=== PATIENT | male | born 1955 | race Caucasian/White ===

== ENCOUNTER 2023-10-05 14:19 | Emergency (ER) | payer OTHER, MEDICARE, SELFPAY ==
[2023-10-05 14:21] VITALS: BP 139/80; BMI 30.5
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
[2023-10-05] MEDS: TYLENOL 1000 MG PO (14:48)
== END 2023-10-05 16:21 | disposition home or self-care (01) ==
LOC: EMR 14:19
PROVIDERS: EMERGENCY PHYSICIAN Emergency Medicine; FAMILY PHYSICIAN Student in an Organized Health Care Education/Training Program
DX: S16.1XXA Strain of muscle, fascia and tendon at neck level, initial encounter (principal); V43.52XA Car driver injured in collision with other type car in traffic accident, initial encounter; I10 Essential (primary) hypertension
CPT/HCPCS: 99284; 70450; 72125

== ENCOUNTER 2023-11-09 19:15 | Emergency (ER) | payer MEDICARE, BC, SELFPAY ==
[2023-11-09 19:20] VITALS: BP 166/89
[2023-11-09 19:23] VITALS: BP 168/86
[2023-11-09 19:43] LABS: % Basophils 0.4 % (0-2); % Eosinophils 1.9 % (0-6); % Immature Granulocytes 0.1 % (0-0.5); % Lymphocytes 38.9 % (20.5-51.1); % Monocytes 11.3 % (1.7-9.3); % Neutrophils 47.4 % (42.2-75.2); Absolute Eosinophils 0.1 10^3/uL (0-0.7); Absolute Lymphocytes 2.7 10^3/uL (1.2-3.4); Absolute Monocytes 0.8 10^3/uL (0.1-0.6); Absolute Neutrophils 3.2 10^3/uL (1.4-6.5); Hematocrit 40.8 % (39.0-52.0); Hemoglobin 14.2 g/dL (13.0-18.0); Mean Corp Hgb Conc. 34.8 g/dL (33.0-37.0); Mean Corpuscular Hgb 31.3 pg (27.0-31.0); Mean Corpuscular Volume 89.9 fL (80.0-94.0); Mean Platelet Volume 10.8 fL (7.4-10.4); Nucleated Red Blood Cells % 0 % (-); Platelet Count 227 10^3/uL (130-400); Red Blood Cell Count 4.54 10^6/uL (4.70-6.10); Red Cell Dist. Width 12.9 % (11.5-14.5); White Blood Cell Count 6.8 10^3/uL (4.8-10.8)
[2023-11-09 20:03] VITALS: BP 158/79
[2023-11-09 20:05] LABS: ALT (SGPT) 23 U/L (0-50); AST (SGOT) 28 U/L (17-59); Albumin 4.7 g/dl (3.5-5.0); Alkaline Phosphatase 41 U/L (38-126); Blood Urea Nitrogen 14 mg/dl (9-20); Calcium 9.8 mg/dl (8.4-10.2); Carbon Dioxide 31 mmol/L (22-30); Chloride 100 mmol/L (98-107); Estimated Creatinine Clearance 122 ml/min; Glucose 98 mg/dl (70-99); Potassium 4.8 mmol/L (3.5-5.1); Sodium 137 mmol/L (135-145); Total Bilirubin 0.7 mg/dl (0.2-1.3); Total Protein 6.9 g/dl (6.3-8.2); eGFR > 60.00
[2023-11-09 20:11] LABS: Troponin I < 0.012 ng/ml
[2023-11-09 21:00] VITALS: BP 142/84
--- NOTE | 2023-11-09 21:36 | ED.GENMED ---
History of Present Illness
General
Chief Complaint: Chest Pain
Source: patient and spouse
Exam Limitations: none
Time Seen by Provider: 11/09/23 19:56
Nursing documentation reviewed up to this point in time: agreed with
Travel History
Have you had any contact with someone who has COVID-19?: No
Do you have any symptoms of coronavirus? Fever > 100 degrees, chills, cough, shortness of breath, sore throat, loss of taste or smell, muscle aches, or headache?: No
History of Present Illness
History of Present Illness:
Patient with history of hypertension on valsartan and carvedilol, presents ED secondary to 3-day history of persistent chest pain, headache, and bilateral arm tingling sensation. When he checked his blood pressure at home on multiple occasions, it
was high as systolic pressure greater than 200. Patient called his wedger and gluer today for an appointment, but appointment was given for next week. Patient did not think he could wait until then. Denies shortness of breath. Denies fever or
chills. Denies trauma. Denies coughing. Denies nausea, vomiting, or diarrhea. Chest pain described as achy sensation, nonradiating, without any alleviating or exacerbating factors. Denies previous history of chest pain. Patient had seen
cardiology in the past, secondary to hypertension along with family history of heart disease. However, for the past 3 years, his wedger and gluer has not recommended that he need to be seen. Denies recent travel or surgery.
Past History
Past History
ED Past Medical History: HTN, Hypercholesterolemia, NIDDM and Other (peripheral neuropathy)
Social History
Tobacco: Non-smoker
Alcohol: None
Drug: None
Personal:
Living: with family
Employment: Retired
Review of Systems
Review of Systems
Allergies reviewed?: Yes
All Other Systems: ROS reviewed and negative except as documented in HPI and ROS
Constitutional: Reports no symptoms
EENT: Reports no symptoms
Respiratory: Reports no symptoms; Denies trouble breathing
Cardiac: Reports chest pain
ABD/GI: Reports no symptoms
Musculoskeletal: Reports no symptoms
Skin: Reports no symptoms
Neurological: Reports headache; Denies dizzy or weakness
Phy Exam
Physical Exam
Physical Exam:
Physical Exam
General: no apparent distress, not acutely ill. afebrile.
Head: nc/at. eomi
Neck: supple. no meningeal signs.
Heart: s1/s2 regular rate and rhythm, no murmur. equal radial pulses.
Lungs: no acute respiratory distress. clear bilaterally. chest wall nontender to palpation.
Abdomen: normal bowel sounds. not tender.
Neuro: alert and oriented. no focal neurological deficits
Skin: no rash
Psychiatric: well kept. interactive and cooperative
Extremities: no edema. no calf tenderness.
Scores
Heart Score for Chest Pain Patients
STEMI patient?: No
History: Slightly or Non-Suspicious
ECG: Normal
Age: >45 - <65 years
Risk Factors: 1 or 2 Risk Factors
Troponin: </= Normal Limit
Heart Score for Chest Pain Patients: 2
Heart Score Risk: 2.5% MACE over next 6 weeks
Course
Orders/Labs/Results
Orders:
Orders
11/09/23 19:17
EKG [Electrocardiogram (*1)] Urgent
Reason for Study: Chest Pain
EKG- Treatment ONCE
11/09/23 19:33
Complete Blood Count/With Diff Urgent
Comprehensive Metabolic Panel Urgent
Troponin I Urgent
Abnormal Lab Results
11/09/23
19:33
RBC 4.54 L 10^6/uL
(4.70-6.10)
MCH 31.3 H pg
(27.0-31.0)
MPV 10.8 H fL
(7.4-10.4)
Absolute Monos (auto) 0.8 H 10^3/uL
(0.1-0.6)
Monocytes % 11.3 H %
(1.7-9.3)
Carbon Dioxide 31 H mmol/L
(22-30)
Creatinine 0.6 L mg/dL
(0.7-1.3)
11/09/23 19:33
11/09/23 19:33
Vital Signs
Initial and Last Documented VS:
Initial Vital Signs
Temp Pulse Resp BP Pulse Ox
98.4 F 46 20 166/89 99
11/09/23 19:20 11/09/23 19:20 11/09/23 19:20 11/09/23 19:20 11/09/23 19:20
Last Documented Vital Signs
Temp Pulse Resp BP Pulse Ox
98.4 F 46 13 142/84 96
11/09/23 19:20 11/09/23 21:15 11/09/23 21:15 11/09/23 21:00 11/09/23 21:15
MDM/Problems Addressed
MDM/Problems Addressed:
History and exam inconsistent with acute coronary syndrome, along with unremarkable workup. Symptoms may just as well be likely secondary to labile blood pressure. However, given patient's underlying hypertension, obesity along with family history
of heart disease, patient does warrant close follow-up with his wedger and gluer. In addition, bradycardia noted in ED, lower than his baseline heart rate. As such, will recommend that he decrease his carvedilol medication to once daily, from twice
daily. Patient advised to return to ED with worsening symptoms. Patient and spouse expressed understanding at time of discharge.
*Critical Care Note
Total Time (30-74mins, 75-104mins- exclusive of procedures): Not Applicable
ED Attending Note
-
Portions of this chart may have been created with voice recognition software.� Occasional wrong word or��sound alike� substitutions may have occurred due to the inherent limitations of voice recognition software.
Discharge Plan
Departure
Patient Disposition: Home (Routine Discharge)
Date of Disposition: 11/09/23
Time of Disposition: 21:36
Patient with high blood pressure during this ER visit?: Yes
Discharge Problem:
Chest pain
Instructions: Chest Pain DCA Follow Up
Prescriptions:
No Action
gabapentin 600 MG tablet
600 mg PO TID
carvedilol 3.125 MG tablet
3.125 mg PO BID
amitriptyline 50 MG tablet
50 mg PO HS
metformin 500 MG tablet extended release 24 hr
500 mg PO DAILY
valsartan-hydrochlorothiazide 1 EACH tablet
1 tab PO DAILY
rosuvastatin 20 MG tablet
20 mg PO QPM
duloxetine 20 MG capsule,delayed release(DR/EC)
20 mg PO DAILY Qty: 30 0RF
Rx Instructions:
cyclobenzaprine 10 MG tablet
10 mg PO TIDPRN PRN (Reason: pain ) Qty: 12 0RF
Referrals:
Antonio Johnson MD [Active] -
Gian Tejeda DO [Family Provider] -
Activity Restrictions/Additional Instructions:
As discussed, please follow-up with your wedger and gluer next week as scheduled, for further evaluation and treatment. Please return to ED immediately with worsening symptoms.
Interventions
Interventions:
*Risk Screen - Suicide Last Done: 11/09/23 19:20
*Neglect/Abuse Screening Last Done: 11/09/23 19:20
ED- Fall Risk Assessment Last Done: 11/09/23 20:17
*ED COVID-19 Vaccine History Last Done: 11/09/23 19:20
*Nursing Disposition Last Done: 11/09/23 22:04
ED- Cardiac Assessment Last Done: 11/09/23 20:17
Discharge Date and Time
Discharge Date/Time: 11/09/23 21:40
== END 2023-11-09 21:40 | disposition home or self-care (01) ==
LOC: EMR 19:15
PROVIDERS: Emergency Medicine; EMERGENCY PHYSICIAN Emergency Medicine; FAMILY PHYSICIAN Student in an Organized Health Care Education/Training Program
DX: R07.89 Other chest pain (principal); I10 Essential (primary) hypertension
CPT/HCPCS: 99284; 80053; 84484; 85025; 93005

== ENCOUNTER → 2023-11-28 07:02 | Outpatient (REF) | payer MEDICARE, BC, SELFPAY | LOC: DHCBC/DCA 07:02 | PROVIDERS: ATTENDING PHYSICIAN Internal Medicine Cardiovascular Disease; FAMILY PHYSICIAN Student in an Organized Health Care Education/Training Program | DX: I51.7 Cardiomegaly (principal); R06.09 Other forms of dyspnea; R07.9 Chest pain, unspecified | CPT/HCPCS: 78452; 93017; A9500 ==

== ENCOUNTER → 2023-12-05 07:11 | Outpatient (REF) | payer MEDICARE, BC, SELFPAY | LOC: DHCBC HW 07:11 | PROVIDERS: ATTENDING PHYSICIAN Internal Medicine Cardiovascular Disease; FAMILY PHYSICIAN Student in an Organized Health Care Education/Training Program | DX: I51.7 Cardiomegaly (principal); R06.09 Other forms of dyspnea; R07.9 Chest pain, unspecified | CPT/HCPCS: 93306 ==